=== PATIENT | female | born 1990 | race Hispanic/Latino ===

== ENCOUNTER 2025-01-06 17:09 | Emergency (ER) | payer OTHER ==
[~2025-01-06] VITALS: Ht 152.4 cm; Wt 85.7 kg
--- NOTE | 2025-01-06 17:58 | HMCIMG ---
RIGHT ANKLE RADIOGRAPHS - 3 VIEWS INDICATION: Pain COMPARISON: None FINDINGS: AP, lateral, and oblique views. No acute fracture or subluxation identified. The talar dome is intact. Ankle mortise and tibial plafond are well maintained. No significant joint effusion is present. No radiopaque foreign body noted. IMPRESSION: No evidence for fracture or dislocation.
--- NOTE | 2025-01-06 18:01 | HMCIMG ---
RIGHT FOOT RADIOGRAPHS - 3 VIEWS INDICATION: Pain COMPARISON: None FINDINGS: AP, lateral, and oblique views. No acute fracture or subluxation identified. Midfoot alignment is well maintained. No radiopaque foreign body noted. IMPRESSION: No evidence for fracture or subluxation.
[2025-01-06] MEDS ORDERED: IBUP-2070 PO (18:08)
--- NOTE | 2025-01-06 18:08 | ERN ---
General Chief Complaint: Ankle Problem Stated Complaint: RIGHT FOOT PAIN FROM FALL Time Seen by MD: 17:13 Time Seen by Midlevel: 17:13 Source: patient History of Present Illness Initial Comments 34-year-old female who presents to the emergency department due to right onset 1 hour prior to arrival. Patient reports she misstepped and felt her ankle roll. Denies any head injuries, LOC, further injuries or further associated symptoms. Denies significant past medical history. Allergies: Coded Allergies: No Known Drug Allergies (Unverified Allergy, Unknown, 01/06/25) Home Meds Active Scripts Ibuprofen (Ibuprofen) 600 Mg Tablet, 600 MG PO Q6H PRN for PAIN for 7 Days, #28 TAB Prov:ALLAN LYNN 01/06/25 Past Medical History Past Medical History: No Pertinent History Past Surgical History: Cholecystectomy, ROS Dictation Constitutional: Negative for fever,chills, and weight loss Eyes: Negative for injury, pain,redness, and discharge ENT: Negative for injury,pain or swelling Cardiovascular: Negative for chest pain, palpitations, and edema Respiratory: Negative for shortness of breath, cough, and wheezing, Abdomen/GI: Negative for abdominal pain, nausea, vomiting, diarrhea, and constipation Back: Negative for injury and pain : Negative for painful urination, bleeding or discharge MS/Extremity: Positive for right ankle pain Negative for injury and deformity Skin: Negative for rash, and discoloration Neuro: Negative for headache, weakness, numbness, tingling, and seizure Psych: Negative for suicide ideation, homicidal ideation, and hallucinations Physical Exam Physical Exam Dictation General: awake, alert, no acute distress Head/Face: Normocephalic, atraumatic Eyes: PERRL, EOMI, normal conjunctiva Neck: Supple, normal range of motion Cardiovascular: RRR, normal S1/S2 Skin: Warm, dry, normal turgor, no rash MS/Extremity: Pulses equal, no cyanosis, neurovascular intact, FROM, tender on palpation to the lateral aspect of the right foot/ankle, no obvious deformities, no ecchymosis, mild swelling on the lateral aspect of the right ankle Neuro: COAx4, GCS 15, strength 5/5, normal sensory, no neurological deficits, normal gait Psych: Normal behavior, mood, and affect normal Results EKG/XRAY/US/CT/MRI X-RAY Comment REASON: pain, injury ORDERING PHYSICIAN: ALLAN LYNN PROCEDURE: [id number] - ANKLE COMP 3VWS RT RIGHT ANKLE RADIOGRAPHS - 3 VIEWS INDICATION: Pain COMPARISON: None FINDINGS: AP, lateral, and oblique views. No acute fracture or subluxation identified. The talar dome is intact. Ankle mortise and tibial plafond are well maintained. No significant joint effusion is present. No radiopaque foreign body noted. IMPRESSION: No evidence for fracture or dislocation. DICTATED BY: OLVIN GAYTAN MD DATE: 01/06/251754 REASON: pain, injury ORDERING PHYSICIAN: ALLAN LYNN PROCEDURE: FT 3VW RT - FOOT COMP 3+VWS RT RIGHT FOOT RADIOGRAPHS - 3 VIEWS INDICATION: Pain COMPARISON: None FINDINGS: AP, lateral, and oblique views. No acute fracture or subluxation identified. Midfoot alignment is well maintained. No radiopaque foreign body noted. IMPRESSION: No evidence for fracture or subluxation. DICTATED BY: OLVIN GAYTAN MD DATE: 01/06/251757 MDM MDM: Differential diagnosis: Fracture, strain, sprain Rationale: 34-year-old female who presents to the emergency department due to right onset 1 hour prior to arrival. Patient reports she misstepped and felt her ankle roll. Denies any head injuries, LOC, further injuries or further associated symptoms. Denies significant past medical history. Took ibuprofen prior to arrival and verbalized it helped with the pain. X-rays obtained of the right ankle and foot with no indications of fractures or dislocations. Patient was educated on findings and diagnosis. Patient was placed in Jayesh wrap in the ED. advised to follow up with PCP. Return to the emergency department if any worsening symptoms. Patient verbalized understanding. Patient stable for discharge. There are no social concerns with this patient. I independently interpreted the test that were performed, results were reviewed by me and considered findings on radiology if ordered. Medical management and examination interpretation discussions were had by me with other qualified healthcare professionals as indicated for the patient's care. ED Course Orders Procedure Category Date Status Time Foot Comp 3+Vws Rt RAD 01/06/25 Resulted 17:25 Ankle Comp 3vws Rt RAD 01/06/25 Resulted 17:25 Vital Signs Date Time Temp Pulse Resp B/P (MAP) Pulse Ox O2 Delivery O2 Flow Rate FiO2 01/06/25 19:02 98.4 90 18 122/73 96 Room Air* 0 21 01/06/25 17:20 97.9 94 18 122/73 95 Room Air 0 DX & DISP Disposition: Discharge Departure Impression: Primary Impression: Ankle sprain Condition: Stable Scripts Ibuprofen (Ibuprofen) 600 Mg Tablet 600 MG PO Q6H PRN for PAIN for 7 Days, #28 TAB Prov: ALLAN LYNN 01/06/25 Additional Instructions: Discharge home. Rest. Follow up with primary care DrKrzysztof in 24 hours. Return to the ER for any acute changes or worsening symptoms. If any medications were prescribed take as directed. Okay to continue home medications unless otherwise discussed during your visit in the emergency room today. Patient was also advised to follow-up with primary care physician in 1 to 2 days for continued monitoring. Referrals: SELF,REFERRAL (PCP) MARY CORDERO MD I performed the substantive portion of the visit. I have reviewed and personally made and approve the management plan that is documented in the notes by myself or the KELSEY. I acknowledge full responsibility for the patient's management plan. ALLAN LYNN Jan 06, 2025 18:08 PHU ROBERTS DO Jan 07, 2025 07:04
[2025-01-06 19:02] VITALS: BP 122/73; PULSE 90; RESP 18; TEMP 98.5; O2SAT 96
== END 2025-01-06 19:05 | disposition home or self-care (01) ==
LOC: EDH 17:09
DX: S93.491A Sprain of other ligament of right ankle, initial encounter (principal); Z90.49 Acquired absence of other specified parts of digestive tract; W18.39XA Other fall on same level, initial encounter; Y93.89 Activity, other specified; Y92.89 Other specified places as the place of occurrence of the external cause; Y99.8 Other external cause status
CPT/HCPCS: 73610; 73630; 99284